=== PATIENT | male | born 1970 | race Caucasian/White ===

== ENCOUNTER 2019-12-15 14:27 | Emergency (ER) | payer BC, SELFPAY ==
[2019-12-15 14:39] VITALS: BP 125/88; PULSE 89; RESP 14; TEMP 36.1; O2SAT 97; BMI 25.7
--- NOTE | 2019-12-15 14:46 | W.ED.BACK ---
HPI - Back Pain/Injury General: Chief Complaint: Back Pain/Injury Stated Complaint: back pain Time Seen by Provider: 12/15/19 14:46 History of Present Illness: HPI Narrative: Patient is a 49-year-old male comes to the ED with thoracic and lumbar back pain after sustaining an injury. Injury occurred just prior to arrival. Patient was lifting heavy cattle pen made of solid [place] wood when he fell backwards and the cattle pen pinned patient down to the ground. The ground was solid concrete. He was unable to lift up the pen and had to get help to get out from under it. Denies any head injury or loss of consciousness. Patient has no numbness, tingling or radiating pain down left or right extremities. Denies bladder/bowel incontinence or pelvic anesthesia. He states he was having a lot of discomfort walking and riding in the car with bumps on the road. He has sensation to both right and left lower extremities. He rates his pain currently about a 5 out of 10. Pain is located right in the middle of the back in between the lumbar and thoracic spine. Denies loss of consciousness, chest pain, pleuritic chest pain, shortness of breath, abdominal pain, bladder or bowel symptoms. Associated symptoms: Deny abdominal pain, chills, dysuria, fatigue, fever(s), hematuria, nausea or vomiting Review of Systems Const: Denies: fever(s), chills or fatigue Eyes: Denies: change in vision or eye discomfort ENMT: Denies: throat pain, odynophagia, nasal discharge or nasal congestion Card: Denies: chest pain, palpitations, edema, swelling of feet/ankles, dyspnea on exertion or orthopnea Resp: Denies: dyspnea, productive cough or non-productive cough GI: Denies: abdominal pain, nausea, vomiting, diarrhea, constipation or hematochezia : Denies: flank pain, difficulty urinating, dysuria or hematuria Musc: Reports: back pain; Denies: neck pain or extremity swelling Skin/Breast: Denies: rash or new lesions Neuro: Denies: headache(s), numbness in extremities or weakness in extremities PFS ED PFSH: Social History Smoking and tobacco status: never smoked Physical Exam Const: COMMON NORMALS: patient oriented x3 and alert GENERAL APPEARANCE: cooperative HENMT: COMMON NORMALS: normocephalic HEAD & SCALP: normocephalic MOUTH: Normal oral and palatal mucosa present THROAT: posterior oropharynx normal and uvula midline Eye: COMMON NORMALS: Equal, round and reactive pupils present PUPIL: Yes Equal, round and reactive pupils present Neck/C-Spine: COMMON NORMALS: supple GENERAL: Yes normal visual inspection Resp: COMMON NORMALS: normal respiratory effort, No retractions, No use of accessory muscles and clear to auscultation bilaterally AUSCULTATION: clear to auscultation bilaterally Cardio: COMMON NORMALS: regular rate, regular rhythm, S1 normal heart sound present, S2 normal heart sound present, No gallops present (Cardio), No clicks present (Cardio), No murmurs present (Cardio) and Peripheral pulses 2+ throughout RATE: regular rate RHYTHM: regular rhythm HEART SOUNDS: S1 normal heart sound present and S2 normal heart sound present PERIPHERAL PULSES: Peripheral pulses 2+ throughout GI: COMMON NORMALS: Normal to inspection, nondistended, normoactive bowel sounds present, Soft to palpation, non-tender and no masses PALPATION: Yes Soft to palpation : COMMON NORMALS: Yes no CVA tenderness BLADDER/KIDNEY EXAM: Yes no CVA tenderness Back/Pelvis: COMMON NORMALS: no CVA tenderness THORACIC SPINE/UPPER BACK: Yes pain with ROM, Yes thoracic spinal tenderness and Yes paraspinal muscle tenderness LUMBAR SPINE/LOWER BACK: Yes pain with ROM, Yes lumbar spinal tenderness and Yes paraspinal muscle tenderness Extremity: COMMON NORMALS: normal to inspection and no pedal edema Neuro: COMMON NORMALS: patient oriented x3 and moves all extremities SENSORIUM/ORIENTATION: Yes alert Skin: COMMON NORMALS: no rashes or lesions noted GENERAL SKIN EXAM: no rashes or lesions noted and dry skin Course Consultations: Consultation #1: I contacted [facility] in [place] for a neurosurgery consult. I spoke with Dr. Pierson and told him about pt's case and CT findings. He told me to have pt placed in a TLSO back brace and his clinic will call patient to set up a follow up apptment. Vital Signs: Vital signs: Vital Signs Temperature 96.9 F L 12/15/19 14:39 Pulse Rate 88 12/15/19 17:30 Respiratory Rate 18 12/15/19 17:30 Blood Pressure 123/94 12/15/19 17:30 Pulse Oximetry 97 06/01/20 17:30 MDM - Back Pain/Injury MDM Narrative: Medical decision making narrative: pt is a 49 y/o male that comes to the ED with back pain after fall. CT of thoracic spine showed compression fracture T12 and Minimal compression changes T9. pt has no neurological symptoms such as bladder/bowel incontinence, numbness/pain or weakness to lower extremities and pelvic anesthesia. I referral with [facility] Neurosurgery was placed and I spoke with Dr. Pierson (Neurosurgeon) at [facility] about pt's case. Dr. Pierson told me to place in a TLSO back brace and his clinic will call patient to set up a follow up apptment. Pt was informed about [facility] referral and [facility] Neurosurgery clinic contact info was given to pt. Pt was placed in TLSO brace and told no lifting was recommended. pt given [place] prescription to help with pain. pt understood and agrees with plan. Imaging Data^: Other CT: Attestation: I personally reviewed and interpreted this imaging study as follows: Radiologist's impression: [address] [address] [address] Scan Report Signed Patient: Valeriano Dai Unit #: [id number] : 1970 Age/Sex: 49 / M ADM Date: 12/15/19 Loc: ER Room/Bed: Attending Dr: Ordering Provider/Ordering MD: Emery Macdonald Date of Service: 12/15/19 Procedure(s): CT thoracic spin wo con* [id number] Accession Number(s): [id number] Report Number: [id number] WS: [id number] CT thoracic spin wo con* [id number] REASON FOR EXAM: injury with mid back pain IV CONTRAST ADMINISTERED: none TOTAL EXAM DLP: 1776.[address] scans at [facility] use at least one of these dose optimization techniques: automated exposure control; mA and/or kV adjustment per patient size (includes targeted exams where dose is matched to clinical indication); or iterative reconstruction. FINDINGS: Compression deformity of the superior growth plate of T12 is again seen. There is mild compression deformities seen at the T9 vertebra. There is no retropulsed segment seen in either compression fracture. The remaining thoracic spine shows normal vertebral alignment. Exiting foramina normal. No disc bulge or herniation. CT/CT thoracic spin wo con* [id number] IMPRESSION: Compression fracture T12 Minimal compression changes T9. Dictated By: Aleks Storey DO Signed By: Aleks Storey DO Signed Date/Time: 12/15/19 1556 DD/ [address] [address] [address] Scan Report Signed Patient: Valeriano Dai Unit #: [id number] : 1970 Age/Sex: 49 / M ADM Date: 12/15/19 Loc: ER Room/Bed: Attending Dr: Ordering Provider/Ordering MD: Emery Macdonald Date of Service: 12/15/19 Procedure(s): CT lumbar spine wo con* [id number] Accession Number(s): [id number] Report Number: [id number] WS: [id number] CT lumbar spine wo con* [id number] REASON FOR EXAM: injury, with lumbar pain IV CONTRAST ADMINISTERED: None. TOTAL EXAM DLP: 2415.[address] scans at [facility] use at least one of these dose optimization techniques: automated exposure control; mA and/or kV adjustment per patient size (includes targeted exams where dose is matched to clinical indication); or iterative reconstruction. FINDINGS: Compression fractures seen involving the superior growth plate of the T12 vertebra. Mild involvement of the pedicle on the left side but otherwise stable fracture. L1-L2: Normal vertebral alignment. Exiting foramina normal. No disc bulge or herniation. No spinal stenosis. L2-L3: Normal vertebral alignment. Exiting foramina normal. No disc bulge or herniation. No spinal stenosis. L3-L4: Normal vertebral alignment. Exiting foramina normal. No disc bulge or herniation. No spinal stenosis. L4-L5: Normal vertebral alignment. Exiting foramina normal. No disc bulge or herniation. No spinal stenosis. L5-S1: Normal vertebral alignment. Exiting foramina are normal. No disc bulge or herniation. No spinal stenosis. CT/CT lumbar spine wo con* [id number] IMPRESSION: Recent compression fracture T12 with involvement minimally of the left pedicle. Dictated By: Aleks Storey DO Signed By: Aleks Storey DO Signed Date/Time: 12/15/19 1550 DD/ 1545 Discharge Plan Discharge Patient Disposition: Home, Self-Care Clinical Impression: Compression of thoracic vertebra Qualifiers: Encounter type: initial encounter Thoracic vertebra fracture level: T12 Qualified Code(s): S22.080A - Wedge compression fracture of T11-T12 vertebra, initial encounter for closed fracture Condition: Stable Prescriptions: No Action No Known Home Medications RF: 0 Discharge Orders: Discharge Order (Routine); Ordered 12/15/19 Ordered By: Emery Macdonald Discharge Diet: Regular Discharge Activity: Limit activity as instructed Patient Instructions: Thoracolumbar Fracture (ED) Activity Restrictions/Additional Instructions: Follow-up with Dr. Pierson at [facility] neuro surgery clinic in [facility]. The clinic address is [facility] [address] [place] [id number]. Phone number of clinic is [phone]. The clinic should be contacting you to set up an appointment in the next several days. If you do not hear from them after couple days you can give them a call. wear TLSO back brace. You can take ibuprofen or Tylenol for any pain and discomfort. Rest and no lifting. Discharge Date/Time: 12/15/19 17:30 Coding Level of Care Code ED Plant Supervisor for Keri Fwd Exam Comprehensive
--- NOTE | 2019-12-15 14:59 | CT_ITS ---
WS: [id number] CT lumbar spine wo con* [id number] REASON FOR EXAM: injury, with lumbar pain IV CONTRAST ADMINISTERED: None. TOTAL EXAM DLP: 2415.[address] scans at [facility] use at least one of these dose optimization techniques: automat ed exposure control; mA and/or kV adjustment per patient size (includes targeted exams where dose is matched to clinical indication); or iterative reconstruction. FINDINGS: Compression fractures seen involving the superior growth plate of the T12 vertebra. Mild in volvement of the pedicle on the left side but otherwise stable fracture. L1-L2: Normal vertebral alignment. Exiting foramina normal. No disc bulge or herniation. No spinal st enosis. L2-L3: Normal vertebral alignment. Exiting foramina normal. No disc bulge or herniation. No spinal st enosis. L3-L4: Normal vertebral alignment. Exiting foramina normal. No disc bulge or herniation. No spinal st enosis. L4-L5: Normal vertebral alignment. Exiting foramina normal. No disc bulge or herniation. No spinal st enosis. L5-S1: Normal vertebral alignment. Exiting foramina are normal. No disc bulge or herniation. No spina l stenosis. CT/CT lumbar spine wo con* [id number] IMPRESSION: Recent compression fracture T12 with involvement minimally of the left pedicle.
--- NOTE | 2019-12-15 14:59 | CT_ITS ---
WS: [id number] CT thoracic spin wo con* [id number] REASON FOR EXAM: injury with mid back pain IV CONTRAST ADMINISTERED: none TOTAL EXAM DLP: 1776.[address] scans at [facility] use at least one of these dose optimization techniques: automat ed exposure control; mA and/or kV adjustment per patient size (includes targeted exams where dose is matched to clinical indication); or iterative reconstruction. FINDINGS: Compression deformity of the superior growth plate of T12 is again seen. There is mild compression deformities seen at the T9 vertebra. There is no retropulsed segment seen in either compression fracture. The remaining thoracic spine shows normal vertebral alignment. Exiting foramina normal. No disc bulge or herniation. CT/CT thoracic spin wo con* [id number] IMPRESSION: Compression fracture T12 Minimal compression changes T9.
[2019-12-15] MEDS: ketorolac 60 mg/2 mL INJ IM (15:13)
[2019-12-15] MEDS: orphenadrine 30 mg/mL Inj 2 mL 60 MG IM (15:13)
--- NOTE | 2019-12-15 15:30 | PC.NURSE ---
patient to ct
[2019-12-15 17:30] VITALS: BP 123/94; PULSE 88; RESP 18; O2SAT 97
--- NOTE | 2019-12-17 09:50 | DCPLANNER ---
Patient called piano case maker stating that he would need a referral to Dr. Ruggiero office. Patients chart stated that patient would need to follow up with Michelle in [place], patient would like to be seen at Dr. Ruggiero office in [place]. Patient stated that he called the clinic and was told that he would need a referral to Dr. Muñiz. manager of planning called the office of Dr. Muñiz, spoke with Benjamín, and was told that patient would need a referral to be seen. manager of planning asked if when the physician that seen patient was back in the ER if he could amend the note for a referral to Dr. Muñiz. manager of planning was told that would be ok. manager of planning called patient and informed patient that the clinic would see patient and would be calling patient with appointment information. manager of planning will leave a note for Emery MALLORY to amend his note, making a referral to Dr. Muñiz.
--- NOTE | 2019-12-18 09:30 | DCPLANNER ---
Benjamín from Dr. Ruggiero office called nurse outreach case manager informing nurse outreach case manager that patient has an appointment scheduled for Sunday, December 22, 2019 at 9:00 with Patricia. Clinic called patient with appointment information.
--- NOTE | 2020-01-02 12:42 | DCPLANNER ---
Patient did attend appointment scheduled for 12.22.[address] Ruggiero office.
== END 2019-12-15 17:30 | disposition home or self-care (01) ==
PROVIDERS: Emergency Provider Physician Assistant
DX: S22.080A Wedge compression fracture of T11-T12 vertebra, initial encounter for closed fracture (principal); W20.8XXA Other cause of strike by thrown, projected or falling object, initial encounter
CPT/HCPCS: 12345; 72128; 72131; 96372; 99281; 99283; J1885; J2360; L0456

== ENCOUNTER 2020-01-20 13:44 | Outpatient (CLI) | payer BC, SELFPAY ==
--- NOTE | 2020-01-20 14:00 | CT_ITS ---
WS: [id number] CT THORACIC SPINE TECHNIQUE: Noncontrast CT of the thoracic spine with coronal and sagittal reformatted images. CLINICAL INFORMATION: Thoracic fracture COMPARISON: December 15, 2019 DLP: 1090.[address] scans at [facility] use at least one of these dose optimization techniques: automat ed exposure control; mA and/or kV adjustment per patient size (includes targeted exams where dose is matched to clinical indication); or iterative reconstruction. FINDINGS: Previously described mild compression fracture T12 vertebral body is unchanged in appearance since th e prior examination. Mild anterior wedging. Stable mild compression deformity superior endplate T9. N o retropulsion. No high-grade central canal stenosis. No new compression fractures. Mild thoracic curve. Mild thoracic kyphosis. Adrenal glands are normal. Normal visualized thoracic aorta. CT/CT thoracic spin wo con* [id number] IMPRESSION: 1. Acute to subacute appearing compression fracture involving T12 superior end plate with sclerosis is similar to previous. No retropulsion. Minimal anterior wedging. 2. Previously described slight compression T9 superior endplate is unchanged i n appearance. 3. No new compression fractures. 4. No other significant findings.
== END 2020-01-20 13:45 | disposition home or self-care (01) ==
LOC: RADWPI 13:51
PROVIDERS: Visit Provider Licensed Practical Nurse
DX: S22.080A Wedge compression fracture of T11-T12 vertebra, initial encounter for closed fracture (principal); X58.XXXA Exposure to other specified factors, initial encounter
CPT/HCPCS: 72128

== ENCOUNTER → 2020-05-26 08:55 | Outpatient (BNVA) | payer BC, SELFPAY | PROVIDERS: Visit Provider Licensed Practical Nurse | DX: M51.16 Intervertebral disc disorders with radiculopathy, lumbar region (principal); S22.080D Wedge compression fracture of T11-T12 vertebra, subsequent encounter for fracture with routine healing; X58.XXXD Exposure to other specified factors, subsequent encounter | CPT/HCPCS: 99213 ==

== ENCOUNTER 2020-06-21 08:00 | Outpatient (CLI) | payer BC, SELFPAY ==
--- NOTE | 2020-06-21 08:33 | MR_ITS ---
WS: [id number] MRI THORACIC SPINE WITHOUT CONTRAST TECHNIQUE: Sagittal T1, T2 and STIR imaging. Axial T2 imaging. Noncontrast imaging obtained. CLINICAL INFORMATION: FRACTURE COMPARISON: CT January 20, 2020 FINDINGS: Mild thoracic curve. Stable compression fracture T12 vertebral body with mild anterior wedging. No si gnificant retropulsion. No high-grade central canal stenosis. Cord signal is normal. Minimal disc bul ging mid thoracic spine with a few Schmorl's nodes. Mild facet arthropathy lower thoracic spine. MR/MR thoracic spin wo con* [id number] IMPRESSION: Mild T12 compression fracture is unchanged. No significant central canal stenos is.
--- NOTE | 2020-06-21 08:34 | MR_ITS ---
WS: [id number] MRI LUMBAR SPINE NONCONTRAST TECHNIQUE: Sagittal T1, T2 and STIR imaging. Axial T1 and T2 imaging. CLINICAL INFORMATION: LOW BACK PAIN COMPARISON: None. FINDINGS: Mild lumbar curve. Again seen is the compression fracture at T12 with mild anterior wedging. This is unchanged since the prior CT December 15, 2019. No significant central canal stenosis. L1-L2: Normal. L2-L3: Normal. L3-L4: No significant disc bulging. Mild facet arthropathy. Spinal canal and foramen are patent. L4-L5: Mild annular bulging. Mild facet arthropathy. Foramen are patent. L5-S1: Mild annular bulging. Mild facet arthropathy. Spinal canal and foramen are patent. Visualized pelvic bony structures: Normal. Paravertebral soft tissues: Normal. MR/MR lumbar spine wo con* [id number] IMPRESSION: 1. Mild lumbar curve. No high-grade central canal stenosis. 2. Compression fracture T12 is unchanged since CT January 03, 2020. No significan t central canal stenosis. 3. Mild facet arthropathy L3-L5.
--- NOTE | 2020-06-21 08:45 | XR_ITS ---
WS: [id number] THORACIC SPINE TECHNIQUE: 3 views of the thoracic spine CLINICAL INFORMATION: S22.080D - Wedge compression fracture of T11-T12 vertebra, subsequent encounter for fracture with routine healing COMPARISON: None. FINDINGS: Osteopenia. Mild compression with anterior wedging in the lower thoracic spine at T12 is unchanged co mpared to prior examinations. No new compression fractures. XR/XR thoracic spine 3V* [id number] IMPRESSION: Stable T12 mild compression fracture
== END 2020-06-21 08:01 | disposition home or self-care (01) ==
PROVIDERS: Visit Provider Licensed Practical Nurse
DX: S22.080A Wedge compression fracture of T11-T12 vertebra, initial encounter for closed fracture (principal); X58.XXXA Exposure to other specified factors, initial encounter; M51.16 Intervertebral disc disorders with radiculopathy, lumbar region; M47.816 Spondylosis without myelopathy or radiculopathy, lumbar region
CPT/HCPCS: 72072; 72146; 72148

== ENCOUNTER 2020-06-22 10:14 | Outpatient (CLI) | payer BC, SELFPAY ==
--- NOTE | 2020-06-22 10:22 | XRR_ITS ---
PROCEDURE INFORMATION: Exam: XR Lumbosacral Spine, 2 or 3 Views Exam date and time: 06/22/2020 10:22 AM Age: 49 years old Clinical indication: Patient HX: C/O low back pain. HX of compression FX t-12 injury December 2019; Additional info: M51.16 - intervertebral disc disorders with radiculopathy, lumbar region TECHNIQUE: Imaging protocol: XR of the lumbosacral spine, 2 or 3 views. COMPARISON: MR lumbar spine wo con* [id number] 06/21/2020 8:48 AM FINDINGS: Bones/joints: There is an occult compression fracture involving superior endplate of the T12 vertebral body. This finding is stable since prior The lumbar spine shows No acute fracture. Normal alignment. Examination does not show instability with flexion and extension. Soft tissues: Unremarkable. XR/XR lumbar spine f/e only [id number] IMPRESSION: 1. Compression fracture superior endplate of T12 stable since prior 2. Otherwise negative for lumbar spine bony abnormality. 3. Negative for instability with flexion and extension
== END 2020-06-22 10:15 | disposition home or self-care (01) ==
LOC: RADWPI 10:17
PROVIDERS: PCP Family Medicine; Visit Provider Licensed Practical Nurse
DX: M51.16 Intervertebral disc disorders with radiculopathy, lumbar region (principal); S22.080A Wedge compression fracture of T11-T12 vertebra, initial encounter for closed fracture; X58.XXXA Exposure to other specified factors, initial encounter
CPT/HCPCS: 72120; 99213

== ENCOUNTER 2020-06-29 08:29 | Outpatient (RCR) | payer BC, SELFPAY | END 2020-07-15 23:59 | disposition home or self-care (01) | LOC: SPT 08:29 | PROVIDERS: PCP Family Medicine; Referring Provider Licensed Practical Nurse; Visit Provider Licensed Practical Nurse | DX: M51.16 Intervertebral disc disorders with radiculopathy, lumbar region (principal) | CPT/HCPCS: 97110; 97161 ==

== ENCOUNTER 2020-07-16 06:00 | Outpatient (RCR) | payer BC, SELFPAY | END 2020-08-15 23:59 | disposition home or self-care (01) | LOC: SPT 06:00 | PROVIDERS: PCP Family Medicine; Referring Provider Licensed Practical Nurse; Visit Provider Licensed Practical Nurse | DX: M51.16 Intervertebral disc disorders with radiculopathy, lumbar region (principal) | CPT/HCPCS: 97110 ==

== ENCOUNTER → 2020-08-03 10:39 | Outpatient (BNVA) | payer BC, SELFPAY | PROVIDERS: PCP Family Medicine; Visit Provider Specialist | DX: M51.16 Intervertebral disc disorders with radiculopathy, lumbar region (principal); R20.0 Anesthesia of skin; R20.2 Paresthesia of skin; S22.080S Wedge compression fracture of T11-T12 vertebra, sequela; Y93.9 Activity, unspecified | CPT/HCPCS: 99215 ==

== ENCOUNTER → 2020-08-24 13:04 | Outpatient (BNVA) | payer BC, SELFPAY | PROVIDERS: PCP Family Medicine; Referring Provider Specialist; Visit Provider Specialist | DX: R20.2 Paresthesia of skin (principal); G57.53 Tarsal tunnel syndrome, bilateral lower limbs; M51.16 Intervertebral disc disorders with radiculopathy, lumbar region | CPT/HCPCS: 95910 ==

== ENCOUNTER → 2020-12-08 13:07 | Outpatient (BNVA) | payer BC, SELFPAY | PROVIDERS: PCP Family Medicine; Visit Provider Specialist | DX: S22.080D Wedge compression fracture of T11-T12 vertebra, subsequent encounter for fracture with routine healing (principal); Y93.9 Activity, unspecified; G57.53 Tarsal tunnel syndrome, bilateral lower limbs; G62.9 Polyneuropathy, unspecified | CPT/HCPCS: 99213 ==

== ENCOUNTER → 2022-01-03 07:38 | Outpatient (BNVA) | payer BC, OTHER, SELFPAY | PROVIDERS: PCP Family Medicine; Visit Provider Family Medicine | DX: Z00.00 Encounter for general adult medical examination without abnormal findings (principal) | CPT/HCPCS: 80053; 80061; 85025 ==

== ENCOUNTER → 2022-12-20 09:37 | Outpatient (BNVA) | payer OTHER, SELFPAY | PROVIDERS: PCP Family Medicine; Visit Provider Family Medicine | DX: Z00.00 Encounter for general adult medical examination without abnormal findings (principal); R35.0 Frequency of micturition | CPT/HCPCS: 80053; 80061; 84153 ==

== ENCOUNTER → 2025-01-06 09:04 | Outpatient (BNVA) | payer OTHER, SELFPAY | PROVIDERS: PCP Family Medicine; Visit Provider Family Medicine | DX: Z00.00 Encounter for general adult medical examination without abnormal findings (principal) | CPT/HCPCS: 80053; 80061 ==